=== PATIENT | female | born 1970 | race African-American/Black ===

== ENCOUNTER 2018-09-30 06:17 | Emergency (ER) | payer OTHER ==
[~2018-09-30] VITALS: Ht 165.1 cm; Wt 130.0 kg
[2018-09-30] MEDS ORDERED: PREDNISONE 20MG TABLET PO ONE (09:30)
[2018-09-30] MEDS ORDERED: DIPHENHYDRAMINE 25MG CAPSULE PO ONE (09:30)
[2018-09-30 09:43] VITALS: BP 148/99
== END 2018-09-30 09:44 | disposition home or self-care (01) ==
LOC: ER 06:17
DX: L03.114 Cellulitis of left upper limb (principal); L50.9 Urticaria, unspecified; I48.91 Unspecified atrial fibrillation; F41.9 Anxiety disorder, unspecified; K21.9 Gastro-esophageal reflux disease without esophagitis; I10 Essential (primary) hypertension; Z98.890 Other specified postprocedural states; Z88.0 Allergy status to penicillin; Z88.1 Allergy status to other antibiotic agents; Z88.8 Allergy status to other drugs, medicaments and biological substances; Z90.710 Acquired absence of both cervix and uterus
CPT/HCPCS: 99283; J7512; Q0163